=== PATIENT | female | born 1995 | race Two or more races ===

== ENCOUNTER 2017-06-27 10:05 | Inpatient (IN) | payer MEDICAID ==
[~2017-06-27] VITALS: Ht 162.6 cm; Wt 85.3 kg
--- NOTE | 2017-06-27 10:10 | NUR ---
Self presents to ER c/o Abdominal and back pain x 4 am, N/V since last night. A/O x 4. Breathing even and unlabored. No sob. Vitals stable. Safety and comfort measures in place. Awaiting MD orders.
[2017-06-27] MEDS ORDERED: ONDANSETRON HCL/PF 4 MG/2 ML VIAL ONE (10:23)
[2017-06-27] MEDS ORDERED: IV NS 0.9% 1,000 ML BAG IV ONE (10:30)
[2017-06-27] MEDS ORDERED: ONDANSETRON HCL/PF 4 MG/2 ML VIAL IVP ONE (10:30)
--- NOTE | 2017-06-27 10:30 | NUR ---
New iv started on lac, 20 g. Blood drawn and sent to lab. Patient medicated per MD orders.
[2017-06-27 10:35] LABS: BASOPHILS # (AUTO) 0.1 /CMM (0.0-0.2); BASOPHILS % (AUTO) 0.7 % (0.0-2.0); EOSINOPHILS % (AUTO) 0.1 % (0.0-6.0); HEMATOCRIT 47 % (33-45); HEMOGLOBIN 15.9 g/dL (11.5-14.8); LYMPHOCYTES # (AUTO) 0.7 /CMM (0.8-4.8); LYMPHOCYTES % (AUTO) 7.4 % (20.0-44.0); MEAN CORPUSCULAR HEMOGLOBIN 30 PG (26.0-33.0); MEAN CORPUSCULAR HGB CONC 34 g/dl (31.0-36.0); MEAN CORPUSCULAR VOLUME 87 fL (82-100); MONOCYTES # (AUTO) 0.2 /CMM (0.1-1.30); NEUTROPHILS # (AUTO) 8.1 /CMM (1.8-8.9); NEUTROPHILS % (AUTO) 89.8 % (43.0-81.0); PLATELET COUNT (AUTO) 378 /CMM (150-450); RDW COEFFICIENT OF VARIATION 12.4 (11.5-15.0); RED BLOOD CELL COUNT(AUTO) 5.32 MIL/uL (4.0-5.2); WHITE BLOOD COUNT (AUTO) 9.1 K/uL (4.3-11.0)
[2017-06-27 10:35] LABS: BILIRUBIN,URINE SMALL (NEGATIVE); BLOOD, URINE Trace-intact Ery/uL (NEGATIVE); KETONES,URINE 15 (NEGATIVE); LEUKOCYTE ESTERASE ,URINE Negative (NEGATIVE); NITRITE, URINE Negative (NEGATIVE); PROTEIN,URINE 100 mg/dl (NEGATIVE); UGLUCOSE Negative (NEGATIVE)
[2017-06-27 10:36] LABS: APPEARANCE,URINE Hazy (CLEAR); COLOR,URINE Dark Yellow (YELLOW)
[2017-06-27 10:40] LABS: SQUAMOUS EPITHELIAL CELL,UR Few /HPF (None Seen)
[2017-06-27 10:41] LABS: BACTERIA,URINE Few /HPF (None Seen)
[2017-06-27 10:50] LABS: ALBUMIN 4.6 g/dL (3.4-5.0); BILIRUBIN,DIRECT 0.3 mg/dL (0.0-0.2); BILIRUBIN,TOTAL 0.8 mg/dL (0.2-1.0); CREATININE 0.8 mg/dL (0.6-1.3); POTASSIUM 3.1 mmol/L (3.5-5.1); TOTAL PROTEIN, SERUM 8.8 g/dL (6.4-8.2)
[2017-06-27] MEDS ORDERED: HYDROMORPHONE INJ 2 MG/ML DISP.SYRIN ONE (11:19)
[2017-06-27] MEDS ORDERED: HYDROMORPHONE 1 MG/1 ML DISP.SYRIN IV ONE (11:30)
--- NOTE | 2017-06-27 11:40 | NUR ---
US TECH AT BEDSIDE.
[2017-06-27] MEDS: POTASSIUM CL. PREMIX PERIPHER. 50 ML IV SCH ×2 (11:55→12:55)
--- NOTE | 2017-06-27 11:55 | NUR ---
IV POTASSIUM RUN WITH [address] OF NS PER [address] REILLY.
[2017-06-27] MEDS ORDERED: POTASSIUM CL. PREMIX PERIPHER. 50 ML ONE ×2 (12:01→12:40)
--- NOTE | 2017-06-27 12:38 | NUR ---
CALLED [facility] [employer] SPIKE ASSEMBLER DR TEJEDA LEFT MESSAGE ON VOICEMAIL
--- NOTE | 2017-06-27 12:56 | NUR ---
CALLED DR RANGEL FOR PANEL
--- NOTE | 2017-06-27 13:00 | NUR ---
MS [id number]
--- NOTE | 2017-06-27 13:08 | NUR ---
REPORT GIVEN TO SYLVIA KAMINSKI FOR ADMISSION.
--- NOTE | 2017-06-27 13:15 | NUR ---
CALLED DR VALLADARES FOR SURGERY
[2017-06-27] MEDS ORDERED: MAG HYDROX/AL HYDROX/SIMETH 30 ML UDC PO PRN (13:30)
[2017-06-27] MEDS ORDERED: MAGNESIUM HYDROXIDE 30 ML UDC PO PRN (13:30)
[2017-06-27] MEDS ORDERED: Z GUARD REMEDY 2 OZ OINT TP PRN (13:30)
[2017-06-27] MEDS ORDERED: MORPHINE SULFATE INJ 2 MG/ML DISP.SYRIN IV PRN (13:30)
[2017-06-27] MEDS ORDERED: ZOLPIDEM TARTRATE 5 MG TABLET PO PRN (13:30)
[2017-06-27] MEDS ORDERED: ACETAMINOPHEN 325 MG TABLET PO PRN (13:30)
[2017-06-27] MEDS ORDERED: ONDANSETRON HCL/PF 4 MG/2 ML VIAL IVP PRN (13:30)
--- NOTE | 2017-06-27 13:31 | NUR ---
PATIENT TRANSPORTED TO [facility] VIA STRETCHER FOR ADMISSION. RN, SYLVIA TO PROVIDE CLINT.
[2017-06-27 14:00] VITALS: BP 135/90
--- NOTE | 2017-06-27 14:00 | NUR ---
RN NOTES ADMISSION RECEIVED PT. FROM ER IN STABLE CONDITION. NO S/S OF ACUTE DISTRESS. NO SOB. PT. IS A&OX4. WILL ASSESS AND MONITOR PT. CONDITION.
[2017-06-27] MEDS: PANTOPRAZOLE 40 MG VIAL IV SCH (14:45)
[2017-06-27] MEDS: HYDROCODONE/APAP 5/325MG 1 EACH TABLET PO PRN (14:51)
--- NOTE | 2017-06-27 15:00 | NUR ---
RN NOTES PT. WAS SEEN AND EXAMINED BY VOIP NETWORK TECHNICIAN. PT. WAS RECOMMENDED TO HAVE AN EGD, AND ERCP. PT. NEEDS CONSENT FOR PROCEDURE TOMORROW.
[2017-06-27] MEDS: IV D5/0.45 NACL 1,000 ML IV PRN (15:33)
--- NOTE | 2017-06-27 19:30 | NUR ---
RN CLOSING NOTES PT. IN BED A&OX4 WATCHING TV. BREATHING UNLABORED AND EVENLY ON ROOM AIR. NO S/S OF ACUTE DISTRESS. IV FLUIDS RUNNING AT 75 ML/HR. BED IS IN LOWEST POSITION, 2 SIDE RAILS UP, AND INSTRUCTED PT. TO USE CALL LIGHT FOR ASSISTANCE. WILL ENDORSE TO NURSE PT. IS NPO AFTER MIDNIGHT FOR EGD, AND ERCP PROCEDURE TOMORROW.
[2017-06-27 20:00] VITALS: BP 132/79
--- NOTE | 2017-06-27 21:30 | NUR ---
MS2 RN NOTES RECEIVED FROM 3RD FLOOR AMBULATORY,ALERT,ORIENTED X4.WITH PRESENT IVF INFUSING WELL,SITE PATENT.FAMILY MEMBERS AT BEDSIDE.KEPT NPO FOR ERCP TOMORROW,CONSENT SIGNED IN CHART.WILL CONTINUE TO MONITOR FOR PAIN.CALL LIGHT IN REACH,NEEDS ANTICIPATED.
[2017-06-27 22:00] VITALS: BP 132/79
[2017-06-28] VITALS (9 sets, daily range): BP systolic 107–128; BP diastolic 66–83
[2017-06-28] MEDS: HYDROCODONE/APAP 5/325MG 1 EACH TABLET PO PRN (00:50)
--- NOTE | 2017-06-28 00:50 | NUR ---
MS2 RN NOTES C/O ABDOMINAL PAIN,MEDICATED WITH NORCO 5/325MG,1 TAB PO ORDERED FOR MODERATE PAIN.
--- NOTE | 2017-06-28 06:21 | NUR ---
MS RN NOTES NORCO EFFECTIVE FOR PAIN MANAGEMENT.SLEPT WELL.KEPT NPO FOR ERCP TO FOLLOW CASE THIS MORNING.IVF INFUSING,SITE REMAINS PATENT.DENIES ABDOMINAL PAIN.FAMILY MEMBER AT BEDSIDE.IN NO ACUTE DISTRESS.WILL ENDORSE TO DAY NURSE FOR CLINT.
[2017-06-28] MEDS: IV D5/0.45 NACL 1,000 ML IV PRN (06:49)
[2017-06-28 07:29] LABS: BASOPHILS % (AUTO) 0.5 % (0.0-2.0); EOSINOPHILS # (AUTO) 0.1 /CMM (0.0-0.7); EOSINOPHILS % (AUTO) 1.4 % (0.0-6.0); HEMATOCRIT 42 % (33-45); HEMOGLOBIN 14.7 g/dL (11.5-14.8); LYMPHOCYTES # (AUTO) 1.7 /CMM (0.8-4.8); LYMPHOCYTES % (AUTO) 26.4 % (20.0-44.0); MEAN CORPUSCULAR HEMOGLOBIN 31 PG (26.0-33.0); MEAN CORPUSCULAR HGB CONC 35 g/dl (31.0-36.0); MEAN CORPUSCULAR VOLUME 88 fL (82-100); MONOCYTES # (AUTO) 0.5 /CMM (0.1-1.30); MONOCYTES % (AUTO) 7.3 % (2.0-12.0); NEUTROPHILS # (AUTO) 4.1 /CMM (1.8-8.9); NEUTROPHILS % (AUTO) 64.4 % (43.0-81.0); PLATELET COUNT (AUTO) 312 /CMM (150-450); RDW COEFFICIENT OF VARIATION 13.4 (11.5-15.0); RED BLOOD CELL COUNT(AUTO) 4.82 MIL/uL (4.0-5.2); WHITE BLOOD COUNT (AUTO) 6.3 K/uL (4.3-11.0)
--- NOTE | 2017-06-28 07:30 | NUR ---
MS YAMILEX AM NOTES PT. IN BED, AAO X4, STABLE CONDITION. ON RA. NO S/S OF ACUTE DISTRESS. NO SOB. NO C/O PAIN AT THIS TIME.LAC G20 WITH D51/2 NS AT 75 ML/HR INFUSING. SITE CLEAR. NPO FOR SCHEDULED ERCP TODAY. AMBULATORY. CALL LIGHT WITHIN REACH. WILL CONTINUE TO MONITOR.
[2017-06-28 07:52] LABS: ALBUMIN 3.8 g/dL (3.4-5.0); BILIRUBIN,DIRECT 0.3 mg/dL (0.0-0.2); BILIRUBIN,TOTAL 0.9 mg/dL (0.2-1.0); CALCIUM, SERUM 8.7 mg/dL (8.5-10.1); CREATININE 0.6 mg/dL (0.6-1.3); MAGNESIUM 2.1 mg/dL (1.8-2.4); PHOSPHORUS 3.6 mg/dL (2.5-4.9); POTASSIUM 3.3 mmol/L (3.5-5.1); TOTAL PROTEIN, SERUM 7.7 g/dL (6.4-8.2)
[2017-06-28] MEDS ORDERED: SUCCINYLCHOLINE CHLORIDE 20 MG/ML VIAL ONE (08:17)
[2017-06-28] MEDS ORDERED: MIDAZOLAM HCL 2 MG/2ML VIAL ONE (08:17)
--- NOTE | 2017-06-28 08:25 | NUR ---
MS RN NOTES PT PICKED UP FOR SCHEDULED ERCP.
--- NOTE | 2017-06-28 09:50 | NUR ---
MS RN NOTES S/P ERCP BY DR. TEJEDA. BACK FROM SURGERY. VSS. POST OP ORDERS CARRIED OUT. PT STABLE. DR. RANGEL INFORMED ABOUT PT FOR SURGERY CONSULT FOR CHOLECYSTECTOMY.
[2017-06-28] MEDS ORDERED: POTASSIUM CHLORIDE 20 MEQ TAB.PRT.SR PO SCH (12:30)
[2017-06-28] MEDS: PANTOPRAZOLE 40 MG VIAL IV SCH (14:37)
--- NOTE | 2017-06-28 18:51 | NUR ---
MS RN NOTES PT RESTING IN BED, NOT IN ANY DISTRESS. CLEAR LIQUID DIET. STILL WAITING FOR SURGICAL CONSULT. SEEN BY DR. RANGEL EARLIER. ALL NEEDS MET. NO OTHER SIGNIFICANT CHANGES. CALL LIGHT WITHIN REACH. WILL ENDORSE TO NEXT SHIFT FOR CLINT.
--- NOTE | 2017-06-28 19:30 | NUR ---
RN NOTE; RECEIVED PT IN BED AWAKE AND ALERT. BREATHING EVENLY. NO SOB. NAD. W/ MILD ABD. PAIN. ON ONGOING IVF HYDRATION. GERRY WELL. NEEDS ATTENDED . CALL LIGHT WITHIN REACH,. WILL CONT TO MONITOR.
[2017-06-28] MEDS ORDERED: HYDROMORPHONE INJ 2 MG/ML DISP.SYRIN IV PRN (21:00)
--- NOTE | 2017-06-28 21:03 | NUR ---
DILAUDID GIVEN ORDERED FOR C/O SEVERE ABD PAIN. WILL CONT TO MONITOR.
--- NOTE | 2017-06-29 06:34 | NUR ---
PT IN BED SLEEPING, AROUSES EASILY. BREATHING EVENLY. NO SOB. NAD. PAIN UNDER CONTROL W/ USE OF PAIN MEDICATIONS. NO EPISODE OF VOMITING. ON ONGOING IVF HYDRATION GERRY WELL. .NEEDS ATTENDED. ASSISTED W/ ADLS. CALL LIGHT WITHIN REACH. WILL CONT TO MONITOR AND WILL ENDORSE TO AM SHIFT FOR CLINT.
[2017-06-29 06:51] LABS: CALCIUM, SERUM 8.3 mg/dL (8.5-10.1); CREATININE 0.6 mg/dL (0.6-1.3); POTASSIUM 3.4 mmol/L (3.5-5.1)
--- NOTE | 2017-06-29 07:30 | NUR ---
MS RN AM NOTES PT. IN BED, AAO X4, STABLE CONDITION. ON RA. NO S/S OF ACUTE DISTRESS. NO SOB. NO C/O PAIN AT THIS TIME.LAC G20 WITH D51/2 NS AT 75 ML/HR INFUSING. SITE CLEAR. ON CLEAR LIQUID DIST.S/P ERCP 06/29/17 DR. TEJEDA. AMBULATORY. CALL LIGHT WITHIN REACH. WILL CONTINUE TO MONITOR.
[2017-06-29 08:00] VITALS: BP 120/71
--- NOTE | 2017-06-29 09:30 | NUR ---
MS RN NOTES SEEN BY DR. RANGEL. WILL PLACE ON SOFT DIET FOR NOW.
[2017-06-29] MEDS ORDERED: POTASSIUM CHLORIDE 20 MEQ TAB.PRT.SR PO SCH ×2 (11:30→14:00)
[2017-06-29] MEDS: PANTOPRAZOLE 40 MG VIAL IV SCH (13:37)
[2017-06-29] MEDS: IV D5/0.45 NACL 1,000 ML IV PRN (15:31)
[2017-06-29 16:00] VITALS: BP 121/78
[2017-06-29 17:39] LABS: INR 0.92 (0.87-1.13); PROTHROMBIN TIME 9.6 SECS (9.5-12.7)
[2017-06-29 18:00] VITALS: BP 121/78
--- NOTE | 2017-06-29 18:32 | NUR ---
MS RN NOTES PT RESTING IN BED, NOT IN ANY DISTRESS. ROOM AIR. FOR SCHEDULED SURGERY DENY. CONSENTS SIGNED. NPO POST MIDNIGHT. IVF INFUSING WELL. SITE CLEAR. SEEN BY DR. RANGEL EARLIER. ALL NEEDS MET. NO OTHER SIGNIFICANT CHANGES. CALL LIGHT WITHIN REACH. WILL ENDORSE TO NEXT SHIFT FOR CLINT.
--- NOTE | 2017-06-29 19:30 | NUR ---
RN NOTE; RECEIVED PT IN BED AWAKE AND ALERT. BREATHING EVENLY. NO SOB. NAD.REPORTED ON AND OFF ABD PAIN . NPO STATUS POST MN AND SX IN AM WAS EXPLAINED TO THE PT W/ UNDERSTANDING. NEEDS ATTENDED . CALL LIGHT WITHIN REACH,. WILL CONT TO MONITOR
[2017-06-29 20:00] VITALS: BP 134/84
[2017-06-29 20:05] VITALS: BP 134/84
[2017-06-30] VITALS (8 sets, daily range): BP systolic 120–145; BP diastolic 77–89
[2017-06-30] MEDS ORDERED: IMIPENEM/CILASTATIN 500 MG in IV NS 0.9% 100 ML IV SCH (06:00)
--- NOTE | 2017-06-30 06:12 | NUR ---
pt w/ a new order for IV primaxin for UTI from the service writer of Dr. Cobb. urine WBC WNL. no RBC in the the urine sample was see. pt asymptomatic, afebrile, no c/o dysuria, no hematuria. Will wait for pharmacy to verify the medication first .
[2017-06-30 06:57] LABS: CALCIUM, SERUM 8.8 mg/dL (8.5-10.1); CREATININE 0.7 mg/dL (0.6-1.3); POTASSIUM 3.6 mmol/L (3.5-5.1)
--- NOTE | 2017-06-30 07:30 | NUR ---
MS/RN Patient received Patient received from cake icer. NPO for surgery later today, refusing IV fluids at this time, denies pain. Will continue to monitor and ensure safety.
--- NOTE | 2017-06-30 07:32 | NUR ---
pt in bed sleeping, arouses easily. w/ no c/o pain or discomfort at this time. npo for sx today. report given to YAMILEX Bone for CLINT.
[2017-06-30] MEDS ORDERED: BUPIVACAINE 0.5 % PF 150 MG/30 ML VIAL ONE ×2 (08:06→09:14)
[2017-06-30] MEDS ORDERED: LIDOCAINE 1% INJ 50 ML MDV IJ ONE (08:06)
--- NOTE | 2017-06-30 08:50 | NUR ---
MS/caul puller Patient taken to OR, medical record with pt.
[2017-06-30] MEDS: MEROPENEM 500 MG in IV NS 0.9% 50 ML IV SCH ×2 (09:00→17:14)
[2017-06-30] MEDS ORDERED: MIDAZOLAM HCL 2 MG/2ML VIAL ONE (09:06)
[2017-06-30] MEDS ORDERED: FENTANYL PF 100MCG/2ML AMPUL ONE ×2 (09:06→09:08)
[2017-06-30] MEDS ORDERED: ROCURONIUM BROMIDE 50 MG/5 ML ONE (09:07)
--- NOTE | 2017-06-30 09:13 | NUR ---
MS/RN Missed IVAB Unable to administer merrem as patient in OR.
[2017-06-30] MEDS ORDERED: ONDANSETRON HCL/PF 4 MG/2 ML VIAL IVP PRN (09:30)
[2017-06-30] MEDS ORDERED: METRONIDAZOLE 500MG/ NS 100ML 100 ML IV ONE (09:40)
[2017-06-30] MEDS ORDERED: METOCLOPRAMIDE HCL 10 MG/2 ML VIAL ONE (10:28)
--- NOTE | 2017-06-30 11:08 | NUR ---
MS/RN Back from OR Patient back from OR, s/p lap blayne. Vital signs upon return within normal range, no fever. Lap sites covered with band aids, all clean and dry. IV fluids infusing as ordered. Family at bedside, updated as to plan of care, will continue to monitor.
--- NOTE | 2017-06-30 13:01 | NUR ---
MS/RN Post Op Remains in stable condition since surgery, vital signs recorded as per hospital policy. Ambulating to bathroom, voiding. Tolerating clear liquid diet.
[2017-06-30] MEDS: HYDROCODONE/APAP 5/325MG 1 EACH TABLET PO PRN ×2 (17:15→22:06)
--- NOTE | 2017-06-30 18:13 | NUR ---
MS/RN End note No changes in condition, remains stable since returning from surgery. IVAB administered, fluids infusing at 75ml/hr. [place] given for pain. Tolerating clear liquid diet. Will continue to monitor and endorse to night worker.
--- NOTE | 2017-06-30 19:30 | NUR ---
MS2 RN INITIAL NOTE RECEIVED REPORT FROM PATEL KAMINSKI. S/P LAP BRANDIN 06/30. PT IS IN BED. A/A/O X4. LUNG SOUNDS CLEAR. BOWEL SOUNDS PRESENT BUT HYPOACTIVE. PULSES PRESENT. IV PATENT AND INTACT WITH D5 1/2 NS @ 75ML/HR. PT CONTINENT TO BOTH URINE AND STOOL. AMBULATORY WITH BRP. BED IN LOW LOCKED POSITION. CALL LIGHT WITHIN REACH. WILL CONTINUE TO MONITOR.
[2017-07-01] MEDS: IV D5/0.45 NACL 1,000 ML IV PRN (00:55)
[2017-07-01] MEDS: MEROPENEM 500 MG in IV NS 0.9% 50 ML IV SCH ×3 (00:55→17:08)
--- NOTE | 2017-07-01 07:30 | NUR ---
MS/RN Patient received Patient received from field scout. Comfortable at this time, pain well controlled with norco. Incision sites clean and dry, open to air. Call light within reach, will continue to monitor.
[2017-07-01 08:00] VITALS: BP_SYST 114; BP_SYST 131; BP_DIAS 58; BP_DIAS 74
[2017-07-01] MEDS: HYDROCODONE/APAP 5/325MG 1 EACH TABLET PO PRN ×3 (08:21→19:46)
[2017-07-01] MEDS: PANTOPRAZOLE 40 MG TABLET.DR PO SCH (08:21)
[2017-07-01 08:23] LABS: BASOPHILS % (AUTO) 0.4 % (0.0-2.0); EOSINOPHILS # (AUTO) 0.1 /CMM (0.0-0.7); EOSINOPHILS % (AUTO) 0.8 % (0.0-6.0); HEMATOCRIT 32 % (33-45); HEMOGLOBIN 11.2 g/dL (11.5-14.8); LYMPHOCYTES # (AUTO) 3.6 /CMM (0.8-4.8); MEAN CORPUSCULAR HEMOGLOBIN 31 PG (26.0-33.0); MEAN CORPUSCULAR HGB CONC 35 g/dl (31.0-36.0); MEAN CORPUSCULAR VOLUME 88 fL (82-100); MONOCYTES # (AUTO) 0.8 /CMM (0.1-1.30); MONOCYTES % (AUTO) 6.9 % (2.0-12.0); NEUTROPHILS # (AUTO) 6.6 /CMM (1.8-8.9); NEUTROPHILS % (AUTO) 59.9 % (43.0-81.0); PLATELET COUNT (AUTO) 253 /CMM (150-450); RDW COEFFICIENT OF VARIATION 13.3 (11.5-15.0); RED BLOOD CELL COUNT(AUTO) 3.62 MIL/uL (4.0-5.2); WHITE BLOOD COUNT (AUTO) 11.1 K/uL (4.3-11.0)
--- NOTE | 2017-07-01 08:30 | NUR ---
MS/RN Pain medication Ellis 5/325mg tablet administered for pain scale 5/10. Will monitor effectiveness.
[2017-07-01 08:31] LABS: ALBUMIN 2.8 g/dL (3.4-5.0); BILIRUBIN,TOTAL 0.3 mg/dL (0.2-1.0); CALCIUM, SERUM 8.2 mg/dL (8.5-10.1); CREATININE 0.6 mg/dL (0.6-1.3); POTASSIUM 3.9 mmol/L (3.5-5.1); TOTAL PROTEIN, SERUM 5.9 g/dL (6.4-8.2)
--- NOTE | 2017-07-01 09:38 | NUR ---
MS/RN S/B Dr Chance Seen by Dr Chance - may be dischargedto home today if cleared by Dr Cobb.
--- NOTE | 2017-07-01 13:00 | NUR ---
MS/RN Clear liquids Tolerating clear liquid diet, no nausea or vomiting.
--- NOTE | 2017-07-01 15:00 | NUR ---
MS/RN 2nd call to MD Second call placed to Dr Cobb as to discharge order.
[2017-07-01 16:00] VITALS: BP 129/78
--- NOTE | 2017-07-01 18:00 | NUR ---
MS/RN End note Ambulating to and from bathroom without any assistance, no BM since surgery but passing gas. Heplock flushing without any resistance, IVAB infused as ordered. Awaiting review from Dr Cobb as to discharge order, needs prescriptions for pain medication. Will endorse to warehouse supervisor 3rd shift,
[2017-07-01 20:00] VITALS: BP 128/73
--- NOTE | 2017-07-01 20:00 | NUR ---
RN NOTES RECEIVED PATIENT IN BED, ALERT AND ORIENTED X4, CALM, NO SOB, COMPLAINING OF PAIN OF 4/10 TO ABDOMEN, WILL GIVE NORCO PO. LEFT AC #20 IS PATENT AND SECURED WITH DRESSING, NEEDS ATTENDED, CALL LIGHT WITHIN REACH,
--- NOTE | 2017-07-01 23:54 | NUR ---
RN NOTES DR. JAKOB VALLADARES CLEARED PATIENT FOR DISCHARGE ON 07/02/17, NO NEW ORDER
[2017-07-02] MEDS: MEROPENEM 500 MG in IV NS 0.9% 50 ML IV SCH ×2 (01:15→08:59)
--- NOTE | 2017-07-02 06:45 | NUR ---
RN NOTES PATIENT IS RESTING COMFORTABLY, NO SOB, NO RESPIRATORY DISTRESS, PROVIDED PAIN MEDICATION DURING SHIFT, STABLE CONDITION, ALL DUE MEDICATIONS GIVEN, FOR POSSIBLE DC TODAY
--- NOTE | 2017-07-02 07:24 | NUR ---
RN NOTES REPORT RECEIVED FROM KINDER TEACHER. PATIENT IS SLEEPING. NO SOB OR DISTRESS NOTED. PATIENT DOES NOT APPEAR TO BE IN PAIN, NO FACIAL GRIMACE NOTED. BED IN A LOW POSITION, CALL LIGHT WITHIN PATIENT REACH. WILL CONTINUE TO MONITOR.
[2017-07-02 08:06] VITALS: BP 113/68
[2017-07-02] MEDS: PANTOPRAZOLE 40 MG TABLET.DR PO SCH (08:59)
--- NOTE | 2017-07-02 15:42 | NUR ---
RN NOTES SPOKE TO DR RUSSELL ON THE PHONE. TOLD MD THAT THE PATIENT STATES SHE REALLY WANTS TO GO HOME AND HAS BEEN HAVING LITTLE TO NO PAIN. MD ASKS IF THE PATIENT WOULD LIKE A PAIN SCRIPT HE IS UNABLE TO COME AND SEE THE PATIENT FOR AT LEAST TWO MORE HOURS. PATIENT STATES THAT SHE THINKS SHE IS FINE AND SHOULD NOT NEED IT. MD STATES THE PATIENT CAN TAKE EXTRA STRENGTH MOTRIN IF SHE NEEDS FOR PAIN. WILL DISCHARGE PATIENT TO HOME.
[2017-07-02 15:54] VITALS: BP 127/79
--- NOTE | 2017-07-02 16:05 | NUR ---
VP INFORMATION TECHNOLOGY NOTE DISCHARGE INSTRUCTIONS GIVEN TO THE PATIENT AND ABLE TO UNDERSTAND. FOLLOW UP CONTACT INFORMATION FOR DR VALLADARES GIVEN TO THE PATIENT. ALL PAPERWORK SIGNED AND BELONGINGS ACCOUNTED FOR. IV REMOVED AND PRESSURE APPLIED. NO BLEEDING NOTED AT THE SITE. FLU SHOT NOT GIVEN PATIENT REFUSES VACCINE. PATIENT LEFT IN STABLE CONDITION VIA WHEEL CHAIR, WITH WILDLIFE BIOSTATION RESEARCH ECOLOGIST IRAJ. NO SOB OR DISTRESS NOTED AT THIS TIME. PATIENT DENIES PAIN. PATIENT DISCHARGED TO HOME.
== END 2017-07-02 16:05 | disposition home or self-care (01) | DRG 263 ==
LOC: ER 10:10 → MED 13:10 → MEDSG2 20:22
PROVIDERS: ADMIT Internal Medicine; ATTEND Internal Medicine
DX: K80.00 Calculus of gallbladder with acute cholecystitis without obstruction (principal); K76.0 Fatty (change of) liver, not elsewhere classified; E87.6 Hypokalemia; Z68.32 Body mass index [BMI] 32.0-32.9, adult; E66.9 Obesity, unspecified; K21.9 Gastro-esophageal reflux disease without esophagitis; N39.0 Urinary tract infection, site not specified
CPT/HCPCS: 36415; 71010-TC; 74000-TC; 76705-TC; 80048-TC; 80053-TC; 80074; 80076-TC; 81000-TC; 83690-TC; 83735-TC; 84100-TC; 84703-TC; 85025-TC; 85610-TC; 87081-TC; 87086-TC; 87186-TC; 88304-TC; 88305-TC; 88307-TC; 88313-TC; A4216; A4606; C9113; J0330; J0690; J0743; J1100; J1170; J2185; J2250; J2405; J2704; J2765; J3010; J3480; J3490; J7030; J7050; Z7610

== ENCOUNTER 2019-05-27 13:06 | Emergency (ER) | payer SELFPAY ==
[~2019-05-27] VITALS: Ht 165.1 cm; Wt 77.6 kg
--- NOTE | 2019-05-27 13:18 | NUR ---
PT BIB SELF C/O dark red blood in stool x 1 episode yesterday, PT IS AAOX4, NOT IN RESPIRATORY DISTRESS, HOOKED TO MONITOR, KEPT RESTED AND COMFORTABLE, WILL CONTINUE TO MONITOR, AWAITING ER MD FOR EVAL.
--- NOTE | 2019-05-27 13:32 | NUR ---
THIAGO PONCE AT BEDSIDE FOR BLOOD DRAW.
--- NOTE | 2019-05-27 13:35 | NUR ---
URINAL GIVEN BUT UNABLE TO PROVIDED URINE SPECIMEN THIS TIME.
[2019-05-27 13:37] LABS: BASOPHILS # (AUTO) 0.1 /CMM (0.0-0.2); BASOPHILS % (AUTO) 0.7 % (0.0-2.0); EOSINOPHILS % (AUTO) 3.2 % (0.0-6.0); HEMATOCRIT 45 % (33-45); HEMOGLOBIN 15.5 g/dL (11.5-14.8); LYMPHOCYTES # (AUTO) 1.6 /CMM (0.8-4.8); LYMPHOCYTES % (AUTO) 14.6 % (20.0-44.0); MEAN CORPUSCULAR HGB CONC 35 g/dl (31.0-36.0); MEAN CORPUSCULAR VOLUME 91 fL (82-100); MONOCYTES # (AUTO) 0.7 /CMM (0.1-1.30); MONOCYTES % (AUTO) 6.6 % (2.0-12.0); NEUTROPHILS % (AUTO) 74.9 % (43.0-81.0); PLATELET COUNT (AUTO) 336 /CMM (150-450); RED BLOOD CELL COUNT(AUTO) 4.88 MIL/uL (4.0-5.2); WHITE BLOOD COUNT (AUTO) 10.7 K/uL (4.3-11.0)
[2019-05-27 13:44] LABS: CREATININE 0.8 mg/dL (0.6-1.3); POTASSIUM 3.6 mmol/L (3.5-5.1)
--- NOTE | 2019-05-27 13:47 | NUR ---
FOOTBALL PAD REPAIRER AT BEDSIDE FOR XRAY.
[2019-05-27] MEDS ORDERED: ONDANSETRON 4 MG TAB.RAPDIS ONE (14:32)
[2019-05-27 15:00] LABS: OCCULT BLOOD STOOL NEGATIVE (NEGATIVE)
[2019-05-27] MEDS ORDERED: ONDANSETRON 4 MG TAB.RAPDIS SL ONE (15:00)
[2019-05-27 15:19] VITALS: BP 122/71
--- NOTE | 2019-05-27 15:19 | NUR ---
Patient discharged to home in stable condition. Written and verbal after care instructions given. Patient verbalizes understanding of instruction.
[2019-05-27] MEDS ORDERED: METOCLOPRAMIDE HCL 10 MG/2 ML VIAL IV ONE (15:30)
[2019-05-27] MEDS ORDERED: diphenhydrAMINE HCL 50 MG/ML VIAL IV ONE (15:30)
== END 2019-05-27 15:22 | disposition home or self-care (01) ==
LOC: ER 13:14
DX: K92.2 Gastrointestinal hemorrhage, unspecified (principal); Z90.49 Acquired absence of other specified parts of digestive tract; Z60.2 Problems related to living alone
CPT/HCPCS: 36415; 71045; 80048; 82272; 85025; 99284; Q0162

== ENCOUNTER 2019-09-17 16:13 | Emergency (ER) | payer BC, OTHER ==
[~2019-09-17] VITALS: Ht 162.6 cm; Wt 83.0 kg
[2019-09-17] MEDS ORDERED: LIDOCAINE VISCOUS 2% UD 15 ML UDC MM ONE (16:30)
[2019-09-17] MEDS ORDERED: MAG HYDROX/AL HYDROX/SIMETH 30 ML UDC PO ONE (16:30)
--- NOTE | 2019-09-17 16:30 | NUR ---
patient came in to the er c/o chest pain on and off "feels like pins poking my chest" 01/21 ps. On room air, breathing evenly and unlabored. connected to the monitor and pulse ox. kept comfortable, will continue to monitor accordingly.
[2019-09-17] MEDS ORDERED: LIDOCAINE VISCOUS 2% UD 15 ML UDC ONE (16:34)
[2019-09-17] MEDS ORDERED: MAG HYDROX/AL HYDROX/SIMETH 30 ML UDC ONE (16:34)
--- NOTE | 2019-09-17 16:44 | NUR ---
urine collected and sent to lab
[2019-09-17 18:04] VITALS: BP 118/71
--- NOTE | 2019-09-17 18:04 | NUR ---
Patient discharged to home in stable condition. Written and verbal after care instructions given. Patient verbalizes understanding of instruction.
== END 2019-09-17 18:04 | disposition home or self-care (01) ==
LOC: ER 16:13
DX: R07.89 Other chest pain (principal); K21.9 Gastro-esophageal reflux disease without esophagitis; Z90.49 Acquired absence of other specified parts of digestive tract; Z60.2 Problems related to living alone
CPT/HCPCS: 71045-TC; 84703-TC

== ENCOUNTER 2021-02-01 22:06 | Emergency (ER) | payer BC, OTHER ==
[~2021-02-01] VITALS: Ht 165.1 cm; Wt 91.6 kg
[2021-02-01 23:21] VITALS: BP 136/85
--- NOTE | 2021-02-01 23:25 | NUR ---
PATIENT BIBS FOR STUCK COTTON SWAB IN HER L EAR SINCE AM. JULIONET A/OX4, RR EVEN AND UNLBORED, NO SOB, VSS. WILL CONTINUE TO MONITOR.
--- NOTE | 2021-02-02 00:12 | NUR ---
Patient discharged to home in stable condition. Written and verbal after care instructions given. Patient verbalizes understanding of instruction.
== END 2021-02-02 00:13 | disposition home or self-care (01) ==
LOC: ER 22:08
DX: T16.2XXA Foreign body in left ear, initial encounter (principal); F41.9 Anxiety disorder, unspecified; Z90.49 Acquired absence of other specified parts of digestive tract; X58.XXXA Exposure to other specified factors, initial encounter; Y93.89 Activity, other specified; Y92.89 Other specified places as the place of occurrence of the external cause; Y99.8 Other external cause status

== ENCOUNTER 2021-04-07 13:22 | Emergency (ER) | payer OTHER ==
[~2021-04-07] VITALS: Ht 162.6 cm; Wt 84.8 kg
[2021-04-07 13:34] VITALS: BP 140/90
--- NOTE | 2021-04-07 13:46 | NUR ---
THE PATIENT BIBS FOR C/O WORSENING SOB SINCE MONDAY, TESTED FOR COVID PENDING RESULT. DENIES PAIN. WILL CONTINUE TO MONITOR THE PATIENT.
--- NOTE | 2021-04-07 13:50 | NUR ---
COVID DAKOTAH CANCELLED, PATIENT JUST GOT TESTED YESTERDAY.
[2021-04-07] MEDS ORDERED: ALBU8.5H8 INH (14:25)
[2021-04-07] MEDS ORDERED: AZIT250T PO (14:25)
[2021-04-07] MEDS ORDERED: PRED50TA PO (14:25)
== END 2021-04-07 14:42 | disposition home or self-care (01) ==
LOC: ER 13:29
DX: J06.9 Acute upper respiratory infection, unspecified (principal); J45.909 Unspecified asthma, uncomplicated; F41.9 Anxiety disorder, unspecified; Y90.9 Presence of alcohol in blood, level not specified; F10.10 Alcohol abuse, uncomplicated; Z90.49 Acquired absence of other specified parts of digestive tract
CPT/HCPCS: 71045-TC

== ENCOUNTER 2021-08-28 16:41 | Emergency (ER) | payer OTHER ==
[~2021-08-28 16:41] MED LIST: ALBU8.5H8 INH; AZIT250T PO; PRED50TA PO
--- NOTE | 2021-08-28 16:59 | NUR ---
CALLED TO TRIAGE NO ANSWER.
--- NOTE | 2021-08-28 17:16 | NUR ---
LEFT BEFORE TRIAGE ASSESSMENT.
== END 2021-08-28 17:25 | disposition left against medical advice (07) ==
LOC: ER 16:43
DX: Z53.21 Procedure and treatment not carried out due to patient leaving prior to being seen by health care provider (principal)

== ENCOUNTER 2023-06-27 17:32 | Emergency (ER) | payer OTHER ==
[~2023-06-27] VITALS: Ht 162.6 cm; Wt 74.8 kg
[2023-06-27 17:48] VITALS: BP 155/84; TEMP 98.2
[2023-06-27] MEDS ORDERED: KETOROLAC TROMETHAMINE INJ 60 MG/2 ML VIAL IM ONE (18:03)
[2023-06-27] MEDS: KETOROLAC TROMETHAMINE INJ 60 MG/2 ML VIAL IM ONE (18:09)
[2023-06-27] MEDS ORDERED: INSU100I30 SQ ×2 (20:14→20:37)
[2023-06-27] MEDS ORDERED: INSU100C10 SQ (20:14)
[2023-06-27] MEDS ORDERED: KETO10TA2 PO ×2 (20:14→20:37)
[2023-06-27] MEDS ORDERED: INSU100I14 SQ (20:37)
[2023-06-27 20:42] VITALS: O2SAT 99
== END 2023-06-27 21:43 | disposition home or self-care (01) ==
LOC: ER 17:58
DX: M54.50 Low back pain, unspecified (principal); J45.909 Unspecified asthma, uncomplicated; F41.9 Anxiety disorder, unspecified; E11.9 Type 2 diabetes mellitus without complications; Z90.49 Acquired absence of other specified parts of digestive tract; Z88.8 Allergy status to other drugs, medicaments and biological substances
CPT/HCPCS: 99285; 70450; 96372; 72131; J1885

== ENCOUNTER 2025-06-04 23:51 | Emergency (ER) | payer OTHER ==
[~2025-06-04] VITALS: Ht 167.6 cm; Wt 83.9 kg
[~2025-06-04 23:51] MED LIST changes: +INSU100I14 SQ; +INSU100I30 SQ; +KETO10TA2 PO
[2025-06-05 03:29] LABS: PLATELET COUNT (AUTO) 340 K/uL (150-450); RED BLOOD CELL COUNT(AUTO) 5.10 MIL/uL (4.0-5.2); RED CELL DISTRIBUTION WIDTH 14.4 % (11.5-15.0); WHITE BLOOD COUNT (AUTO) 9.7 K/uL (4.3-11.0)
[2025-06-05 03:39] LABS: CALCIUM, SERUM 8.8 mg/dL (8.5-10.1); CREATININE 0.8 mg/dL (0.6-1.3); SODIUM SERUM 140.0 mmol/L (136-145); UREA NITROGEN, BLOOD 14.0 mg/dL (7-18)
[2025-06-05 03:45] LABS: ASPARTATE AMINOTRANSFERASE 50.0 U/L (15-37); TOTAL PROTEIN, SERUM 8.3 g/dL (6.4-8.2)
[2025-06-05 07:11] VITALS: BP 133/70; TEMP 98.1; O2SAT 97
== END 2025-06-05 07:12 | disposition home or self-care (01) ==
LOC: ER 23:57
DX: R10.20 Pelvic and perineal pain unspecified side (principal); J45.909 Unspecified asthma, uncomplicated; Z79.52 Long term (current) use of systemic steroids; Z90.49 Acquired absence of other specified parts of digestive tract
CPT/HCPCS: 36415; 76856-TC; 80048-TC; 80076-TC; 85025-TC